=== PATIENT | female | born 1985 | race Two or more races ===

== ENCOUNTER 2023-07-29 11:31 | Emergency (ER) | payer OTHER, SELFPAY ==
--- NOTE | ~2023-07-29 | XR_ITS ---
EXAMINATION: XR CHEST CLINICAL INFORMATION: Shortness of breath COMPARISON: None available. TECHNIQUE: 2 views of the chest were obtained. FINDINGS: Suggestion of hyperinflated lungs. No focal consolidation. No pleural effusion or pneumothorax. Normal heart size and mediastinal contours. XR/XR chest 2V IMPRESSION: No acute cardiopulmonary abnormality.
--- NOTE | 2023-07-29 13:19 | ED_ITS ---
HPI - General Adult General Chief complaint: General Medical Stated complaint: jaw pain/ SOB?? Time Seen by Provider: 07/29/23 14:06 Source: patient and family Mode of arrival: ambulatory Limitations: no limitations History of Present Illness HPI narrative: 37 yo female previously healthy here with multiple complaints of sore throat, difficulty swallowing (carbohydrates, dry foods only), palpitations x 1 week. No fevers, chills, URI symptoms, chest pain, shortness of breath, abdominal pain, vomiting, diarrhea, leg swelling or leg pain. No recent travel or sick contact. No difficulty with swallowing liquids. No weight loss. Related Data Allergies Allergy/AdvReac Type Severity Reaction Status Date / Time No Known Allergies Allergy Verified 07/29/23 13:20 Review of Systems 2 Review of Systems: Yes all other systems are reviewed and are negative Constitutional: Constitutional: Reports no additional constitutional complaints, Denies body ache(s), Denies chills, Denies fever(s), Denies headache(s), Denies weakness and Denies weight loss Eyes: Eyes: Reports no additional eye complaints and Denies change in vision ENT: Reports system reviewed and no additional complaints, except as documented, Reports dysphagia, Denies dizziness, Denies headache(s), Denies nasal congestion, Denies nasal discharge, Denies neck pain and Reports sore throat Cardiovascular: Cardiovascular: Reports no additional cardiovascular complaints, Denies chest pain, Denies leg edema, Reports palpitations and Denies dyspnea Respiratory: Respiratory: Reports no additional respiratory complaints, Denies cough and Denies dyspnea Gastrointestinal: Gastrointestinal: Reports no additional gastrointestinal complaints, Denies abdominal pain, Reports dysphagia, Denies diarrhea, Denies nausea and Denies vomiting Genitourinary: Genitourinary: Reports no additional female genitourinary complaints and Denies urinary incontinence Musculoskeletal: Musculoskeletal: Reports no additional musculoskeletal complaints, Denies back pain, Denies arthralgias, Denies joint swelling, Denies neck pain, Denies numbness and Denies tingling Integumentary/Breasts: Skin/Breast: Reports system reviewed and no additional complaints, except as docu and Denies rash Neurologic: Reports system reviewed and no additional complaints, except as documented, Denies Abnormal speech present, Denies dizziness, Denies headache(s), Denies numbness, Denies tingling and Denies weakness Endocrine: Endocrine: Reports palpitations PMFSH Past Medical History Attestation statement: The following information was validated with the patient. Source: old records reviewed and nursing notes reviewed Onset Date is defined in the Problem List Problems that require an onset date and time if occurred within 24 hrs of arrival to the ED Aortic Dissection and Rupture; Neurologic impairment; Cardiopulmonary Arrest; Endotracheal Intubation; Insertion or Replacement of Mechanical Circulatory Assist Device Social History Social History Advance Directives: No Advance Directives Information Provided: No Physical Exam ED Vital Signs: Vital Signs - 24 hr 07/29/23 13:20 Temperature 98.2 F Pulse Rate 102 H Respiratory Rate 18 Blood Pressure 152/93 H Pulse Oximetry 100 Oxygen Delivery Method Room Air BMI result Body Mass Index 19.2 Const General: cooperative, healthy appearing, comfortable and no acute distress Orientation/consciousness: patient oriented x3 Limitations: no limitations HENMT Head: Yes normal to inspection Ears: hearing grossly normal bilaterally and TM's normal bilaterally General nose exam: Normal external nose present Face and sinus: Yes normal facial exam Mouth: Normal oral and palatal mucosa present Throat: Yes posterior oropharynx normal, Yes tonsils normal and Yes uvula midline Eyes General: appearance normal, both eyes and all related structures Pupils: Equal, round and reactive pupils present Neck Neck: Yes normal visual inspection, Yes full ROM, Yes no lymphadenopathy and Yes no meningeal signs Chest Chest palpation & inspection: normal inspection of the chest Resp Effort & Inspection: normal respiratory effort Auscultation: clear to auscultation bilaterally Cardio Rate: regular rate Rhythm: regular rhythm Peripheral pulses: Peripheral pulses 2+ throughout GI Inspection: Yes normal to inspection Palpation (GI): Soft to palpation and nontender Auscultation: normal bowel sounds Back/Spine/Pelvis Thoracic/Lumbar Spine: thoracic and lumbar spine normal to inspection Skin General skin exam: no rashes or lesions noted Neuro General: patient oriented x3, no meningeal signs, no focal motor deficits and normal sensation to monofilament Cranial nerves: Yes Equal, round and reactive pupils present Cognition (Neuro): normal cognition Speech: No Abnormal speech present Gait exam (Neuro): Normal gait present Motor exam (neuro): 5/5 motor strength present throughout Extrem General: Yes normal to inspection, Yes no pedal edema and Yes no calf tenderness Course Course Course Narrative: This is an RME: Additional HPI, ROS, PE not included below will be deferred to primary provider. This is a [id number]-female, with no known medical problems, presenting to the emergency department with a complaint of SOB, palpitations, and sore throat x 1 week. She is on control, no recent travel, surgeries, hospitalizations, cancer hx or blood clot hx. Plan: Viral swabs, Labs, EKG, CXR Medical Decision Making Medical Decision Making [facility] Narrative: 37 yo female previously healthy here with multiple complaints of sore throat, difficulty swallowing (carbohydrates, dry foods only), palpitations x 1 week. No fevers, chills, URI symptoms, chest pain, shortness of breath, abdominal pain, vomiting, diarrhea, leg swelling or leg pain. No recent travel or sick contact. No difficulty with swallowing liquids. No weight loss. Patient tolerating p.o. secretions, no difficulty breathing or swallowing. LS CTA. VSS. 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 with no difficulty. No red flag symptoms to suggest need for urgent GI consultation and or admission. Lab Data [facility] Lab Attestation statement: I reviewed the patient's lab results. 07/29/23 13:59 07/29/23 13:59 Labs: Lab Results 07/29/23 Range/Units 13:59 WBC 7.1 (4.8-10.8) X10*3/uL RBC 4.38 (4.20-5.50) X10*6/uL Hgb 13.3 (12.0-16.0) g/dl Hct 38.9 (37.0-47.0) % MCV 88.8 (80.0-98.0) fL MCH 30.4 (27.0-33.0) pg MCHC 34.2 (31.0-35.0) g/dl RDW 11.6 (11.0-16.0) % Plt Count 291 (160-400) X10*3/uL MPV 9.2 L (9.4-12.3) fL Immature Gran % (Auto) 0.3 (0.0-0.4) % Neut % (Auto) 62.2 (45-73) % Lymph % (Auto) 27.9 (20-40) % [place] % (Auto) 6.2 (2-11) % Eos % (Auto) 2.8 (0-4) % Baso % (Auto) 0.6 (0-2) % Lymph # (Auto) 2.0 (1.2-4.9) X10*3/uL [place] # (Auto) 0.4 (0.1-1.2) X10*3/uL Eos # (Auto) 0.2 (0.0-0.4) X10*3/uL Baso # (Auto) 0.0 (0.0-0.2) X10*3/uL Abs Immat Gran (auto) 0.02 (0.00-0.03) X10*3/uL Absolute Neuts (auto) 4.4 (2.0-8.3) x10*3/uL Absolute Nucleated RBC 0.000 (0.0-0.012) X10*3/uL Nucleated RBC % (auto) 0.0 (0.0-0.2) /100WBC Sodium 138 (135-145) mmol/L Potassium 3.5 (3.3-5.1) mmol/L Chloride 106 (96-108) mmol/L Carbon Dioxide 24 (22-29) mmol/L Anion Gap 12 (12-20) BUN 11 (9-16) mg/dL Creatinine 0.62 (0.5-1.4) mg/dL Estim Creat Clear Calc 101.5 Estimated GFR > 60 Random Glucose 86 (60-115) mg/dL Calcium 9.4 (8.4-10.2) mg/dL Total Bilirubin 1.3 H (0.0-1.0) mg/dL Direct Bilirubin 0.4 (0.0-0.5) mg/dL AST 12 (5-31) U/L ALT 7 (0-31) U/L Alkaline Phosphatase 54 (39-117) U/L Troponin I High Sens < 2.7 (<3.5-17.0) ng/L Total Protein 7.2 (6.5-8.0) g/dL Albumin 4.1 (3.5-5.0) g/dL TSH 1.33 (0.32-4.0) uIU/mL COVID-19 (MARILEE) Negative (Negative) COVID-19 Clin Com See Note Influenza Type A (DWIGHT) Negative (Negative) Influenza Type B (DWIGHT) Negative (Negative) Influenza A & B Note See Note S. pyogenes GrpA DWIGHT Negative (Negative) Independent Interpretation I performed an independent interpretation of an: EKG and Plain X-Ray Interpretation: I independently reviewed the x-ray and agree with the radiology report I independently reviewed the EKG which shows ST with a rate of 104, normal pr, normal qrs, normal qt Radiology Impression Discussion of test interpretation with radiology: I have reviewed the radiologist's reading. Radiologist Impression: [address] [address] XRay Report Signed Patient: Giorgi Lee MR#: [id number] : 1985 Acct:[id number] Age/Sex: 37 / F ADM Date: 07/29/23 Loc: .ED Attending Dr: Ordering Physician: Susy Vera Date of Service: 07/29/23 Procedure(s): XR chest 2V Accession Number(s): [id number] cc: Susy Vera; Physician,Unknown ~ EXAMINATION: XR CHEST CLINICAL INFORMATION: Shortness of breath COMPARISON: None available. TECHNIQUE: 2 views of the chest were obtained. FINDINGS: Suggestion of hyperinflated lungs. No focal consolidation. No pleural effusion or pneumothorax. Normal heart size and mediastinal contours. XR/XR chest 2V IMPRESSION: No acute cardiopulmonary abnormality. Independent Historian Clinical information obtained from an independent historian. History obtained from or confirmed by: Spouse is interpreting-declined formal label fuser tender usage Discharge Plan Discharge Clinical Impression: Palpitations Patient Disposition: Home, Self-Care Instructions: Heart Palpitations (ED) Additional Instructions: stay well hydrated. Your lab work and EKG are normal. Your testing for strep throat and COVID are negative. Your chest x-ray shows no signs of infection. As far as your difficulty swallowing please eat soft foods, cut your food into small bites and eat slowly. Chews thoroughly. Please establish a primary care doctor as you may need further outpatient testing. Please return for any worsening symptoms. Referrals: Physician,Unknown J [Primary Care Provider] - 1 week
[2023-07-29 13:20] VITALS: BP 152/93; PULSE 102; RESP 18; TEMP 36.8; O2SAT 100; BMI 19.2
--- NOTE | 2023-07-29 13:24 | ECG_ITS ---
Test Reason : PALPITATIONS Blood Pressure : / mmHG Vent. Rate : 104 BPM Atrial Rate : 104 BPM P-R Int : 132 ms QRS Dur : 092 ms QT Int : 342 ms P-R-T Axes : 078 083 046 degrees QTc Int : 449 ms Sinus tachycardia Otherwise normal ECG No previous ECGs available Referred By: Susy Vera Electronically Signed By:GLORIA POMPA MD
[2023-07-29 14:04] LABS: MANUAL DIFF FLAG NO
[2023-07-29 14:05] LABS: Basophils Percent Auto 0.6 % (0-2); Eosinophils Absolute Auto 0.2 X10*3/uL (0.0-0.4); Eosinophils Percent Auto 2.8 % (0-4); Hematocrit 38.9 % (37.0-47.0); Hemoglobin 13.3 g/dl (12.0-16.0); Imm Gran Abs Auto 0.02 X10*3/uL (0.00-0.03); Imm Gran Pct Auto 0.3 % (0.0-0.4); Lymphocytes Percent Auto 27.9 % (20-40); Mean Corpuscular HGB Conc 34.2 g/dl (31.0-35.0); Mean Corpuscular Hemoglobin 30.4 pg (27.0-33.0); Mean Corpuscular Volume 88.8 fL (80.0-98.0); Mean Platelet Volume 9.2 fL (9.4-12.3); Monocytes Absolute Auto 0.4 X10*3/uL (0.1-1.2); Monocytes Percent Auto 6.2 % (2-11); Neutrophils Absolute Auto 4.4 x10*3/uL (2.0-8.3); Neutrophils Percent Auto 62.2 % (45-73); Platelet Count 291 X10*3/uL (160-400); Red Blood Count 4.38 X10*6/uL (4.20-5.50); Red Cell Distribution Width 11.6 % (11.0-16.0); White Blood Count 7.1 X10*3/uL (4.8-10.8)
[2023-07-29 14:21] LABS: COVID-19 Test Negative (Negative); IDNOW Serial# 08D9AD1C; IDNOW Serial# 152EDE1D; Strep A Nucleic Acid Negative (Negative)
[2023-07-29 14:25] LABS: Alanine Aminotransferase 7 U/L (0-31); Albumin Level 4.1 g/dL (3.5-5.0); Alkaline Phosphatase 54 U/L (39-117); Anion Gap 12 (12-20); Aspartate Amino Transferase 12 U/L (5-31); Bilirubin Direct 0.4 mg/dL (0.0-0.5); Bilirubin Total 1.3 mg/dL (0.0-1.0); Blood Urea Nitrogen 11 mg/dL (9-16); Calcium 9.4 mg/dL (8.4-10.2); Carbon Dioxide 24 mmol/L (22-29); Chloride 106 mmol/L (96-108); Creatinine Clr Calc Pharmacy 101.5; Estimated Glomerular Filt Rate > 60; Glucose Random 86 mg/dL (60-115); IDNOW Serial# 9DB6401D; Influenza A Negative (Negative); Influenza B2 Negative (Negative); Potassium 3.5 mmol/L (3.3-5.1); Sodium 138 mmol/L (135-145); Total Protein 7.2 g/dL (6.5-8.0)
[2023-07-29 14:30] LABS: Troponin-I High Sensitivity < 2.7 ng/L (<3.5-17.0)
[2023-07-29 14:39] LABS: TSH reflex Free T4 1.33 uIU/mL (0.32-4.0)
== END 2023-07-29 16:23 | disposition home or self-care (01) ==
PROVIDERS: Physician Assistant Medical; Emergency Provider Emergency Medicine
DX: R00.2 Palpitations (principal); R06.02 Shortness of breath; Z11.52 Encounter for screening for COVID-19; J02.9 Acute pharyngitis, unspecified
CPT/HCPCS: 36415; 71046; 80048; 80076; 84443; 84484; 85025; 87502; 87635; 87651; 93005; 99283

== ENCOUNTER → 2023-07-29 13:24 | Outpatient (BNV) | payer OTHER, SELFPAY | PROVIDERS: Emergency Provider Emergency Medicine; Visit Provider Internal Medicine Cardiovascular Disease | DX: R00.0 Tachycardia, unspecified (principal) | CPT/HCPCS: 93010 ==

== ENCOUNTER 2024-05-20 17:29 | Emergency (ER) | payer OTHER, SELFPAY ==
--- NOTE | ~2024-05-20 | XR_ITS ---
EXAMINATION: XR ABDOMEN KUB CLINICAL INDICATION: Pain. COMPARISON: None available. TECHNIQUE: AP view of the abdomen. FINDINGS: The bowel gas pattern is normal with no evidence of ileus or obstruction. There is retained stool. No unusual soft tissue calcifications are noted. The bones are unremarkable. XR/XR KUB IMPRESSION: Nonspecific bowel gas pattern. Retained stool of uncertain significance. Electronically signed by: Yasir Interiano MD 05/21/2024 12:49 AM OPAL
[2024-05-20 17:55] VITALS: BP 152/79; PULSE 94; RESP 20; TEMP 36.6; O2SAT 100; BMI 24.9
--- NOTE | 2024-05-20 18:00 | ED.GENADULT ---
HPI - General Adult General Chief complaint: Abdominal Pain Stated complaint: Stomach Pain Dizzy Time Seen by Provider: 05/20/24 22:33 Source: patient Limitations: language barrier History of Present Illness ED Provider: Maty Conn PA-C HPI narrative: 38-year-old female with a history of constipation presents with abdominal pain x3 days. Pain over left mid abdomen, nonradiating, unable to describe the nature of her pain. Associated intermittent nausea vomiting. Associated indigestion. Denies abdominal distention, inability to pass flatus. Unclear when patient had a last normal bowel movement, she is passing small amounts of hard stool. Related Data Previous Rx's ?Medication ?Instructions ?Recorded ondansetron 4 mg disintegrating 4 mg PO Q8H PRN nausea and 05/21/24 tablet vomiting #10 tabs sucralfate 1 gram tablet (Carafate) 1 g PO Q6H PRN acid reflux #20 tabs 05/21/24 Allergies Allergy/AdvReac Type Severity Reaction Status Date / Time No Known Allergies Allergy Verified 05/20/24 17:59 Review of Systems Review of Systems: Yes all other systems are reviewed and are negative Constitutional: Constitutional: Denies fatigue and Denies fever(s) Cardiovascular: Cardiovascular: Denies chest pain and Denies dyspnea Respiratory: Respiratory: Denies dyspnea Gastrointestinal: Gastrointestinal: Reports abdominal pain, Reports constipation, Reports dyspepsia, Reports nausea and Reports vomiting Endocrine: Endocrine: Denies fatigue PMFSH Past Medical History Attestation statement: The following information was validated with the patient. Social History Social History Advance Directives: No Advance Directives Information Provided: No Physical Exam ED Vital Signs: Vital Signs - 24 hr 05/20/24 17:55 05/20/24 22:36 05/21/24 01:28 Temperature 97.8 F 98.0 F 97.9 F Pulse Rate 94 91 77 Respiratory Rate 20 18 18 Blood Pressure 152/79 H 140/91 H 126/79 Pulse Oximetry 100 99 100 Oxygen Delivery Method Room Air Room Air Room Air 05/21/24 01:40 Temperature 97.9 F Pulse Rate 77 Respiratory Rate 18 Blood Pressure 126/79 Pulse Oximetry 100 Oxygen Delivery Method Room Air BMI result Body Mass Index 24.9 Const Other: Alert, well-appearing Orientation/consciousness: patient oriented x3 Resp Other: Nonlabored respiration Cardio Other: Normal peripheral perfusion GI Other: Abdomen is soft, nondistended nontender no guarding Skin Other: Warm dry no rash Neuro General: patient oriented x3, no focal motor deficits and CN's II-XI intact bilaterally Psych Other: Calm cooperative Course Course Course Narrative: RME: 38 year female presents to ED for dizziness described as lightheadedness and vomiting with epigastric abdominal pain radiating to left upper abdomen. Patient denies any recent trauma or lower abdominal symptoms. EKG labs ordered Medical Decision Making Medical Decision Making [place] Narrative: 38-year-old female with a history of constipation presents with abdominal pain x3 days. Pain over left mid abdomen, nonradiating, unable to describe the nature of her pain. Associated intermittent nausea vomiting. Associated indigestion. Denies abdominal distention, inability to pass flatus. Unclear when patient had a last normal bowel movement, she is passing small amounts of hard stool. Problem: Constipation History: Per patient I have considered the following differential diagnoses: Bowel obstruction, constipation, fecal impaction, obstipation Plan: Screening labs obtained, I am adding a KUB. This is likely the patient's constipation, she has had symptoms for 3 days, her labs are completely normal, her exam was unremarkable. Thought about bowel obstruction, however she does not have obstructive symptoms. Labs: No leukocytosis, not anemic, urine not infected, not , viral panel neg KUB: Significant stool burden Lab Data 05/20/24 18:39 05/20/24 18:39 Labs: Lab Results 05/20/24 Range/Units 18:39 WBC 7.6 (4.8-10.8) X10*3/uL RBC 4.48 (4.20-5.50) X10*6/uL Hgb 14.0 (12.0-16.0) g/dl Hct 39.5 (37.0-47.0) % MCV 88.2 (80.0-98.0) fL MCH 31.3 (27.0-33.0) pg MCHC 35.4 H (31.0-35.0) g/dl RDW 11.4 (11.0-16.0) % Plt Count 289 (160-400) X10*3/uL MPV 9.6 (9.4-12.3) fL Immature Gran % (Auto) 0.3 (0.0-0.4) % Neut % (Auto) 51.0 (45-73) % Lymph % (Auto) 35.7 (20-40) % [place] % (Auto) 7.9 (2-11) % Eos % (Auto) 4.6 H (0-4) % Baso % (Auto) 0.5 (0-2) % Lymph # (Auto) 2.7 (1.2-4.9) X10*3/uL [place] # (Auto) 0.6 (0.1-1.2) X10*3/uL Eos # (Auto) 0.4 (0.0-0.4) X10*3/uL Baso # (Auto) 0.0 (0.0-0.2) X10*3/uL Abs Immat Gran (auto) 0.02 (0.00-0.03) X10*3/uL Absolute Neuts (auto) 3.9 (2.0-8.3) x10*3/uL Absolute Nucleated RBC 0.000 (0.0-0.012) X10*3/uL Nucleated RBC % (auto) 0.0 (0.0-0.2) /100WBC Sodium 141 (135-145) mmol/L Potassium 3.6 (3.3-5.1) mmol/L Chloride 107 (96-108) mmol/L Carbon Dioxide 25 (22-29) mmol/L Anion Gap 13 (12-20) BUN 14 (9-16) mg/dL Creatinine 0.74 (0.5-1.4) mg/dL Estim Creat Clear Calc 98.1 Estimated GFR > 60 Random Glucose 91 (60-115) mg/dL Calcium 9.5 (8.4-10.2) mg/dL Total Bilirubin 1.1 H (0.0-1.0) mg/dL AST 18 (5-31) U/L ALT 12 (0-31) U/L Alkaline Phosphatase 60 (39-117) U/L Troponin I High Sens < 2.7 (<3.5-17.0) ng/L Total Protein 7.5 (6.5-8.0) g/dL Albumin 4.6 (3.5-5.0) g/dL Lipase 25 (8-78) U/L Beta HCG, Quant < 2 mIU/mL Influenza Type A (PCR) NEGATIVE (Negative) Influenza Type B (PCR) NEGATIVE (Negative) RSV RNA Qual (PCR) NEGATIVE (Negative) SARS-CoV-2 RNA (RT-PCR) NEGATIVE (Negative) Discharge Plan Discharge Clinical Impression: Constipation, GERD (gastroesophageal reflux disease) Patient Disposition: Home, Self-Care Instructions: Constipation (ED), Gastroesophageal Reflux Disease (ED) Additional Instructions: All of your labs were completely normal. The x-ray revealed a your significantly constipated. See home care instructions. To note, significant constipation can cause acid reflux symptoms and nausea. In order to alleviate your significant stool burden, you need to use [id number] Colace, this is a stool softener, 1 to 2 times a day. In addition, you need to purchase [id number] MiraLax, mix the powder per package instructions, consume the liquid 2 to 4 times a day, until you begin having multiple large volume bowel movements. Once you alleviate your current stool burden, stay on the stool softener daily, you may require the MiraLax daily or a few times a week. You will have to determine what works for you. In the meantime, use the Carafate for your burning sensation in your stomach. Uses Zofran as needed for nausea. You really need a primary care provider, I would call your insurance company for guidance on this matter. Prescriptions: New ondansetron 4 mg tablet,disintegrating 4 mg PO Q8H PRN (Reason: nausea and vomiting) Qty: 10 0RF sucralfate [Carafate] 1 gram tablet 1 g PO Q6H PRN (Reason: acid reflux) Qty: 20 0RF Stand Alone Forms: Work/School Release Interventions: ED Discharge Assessment Last Done: 05/21/24 01:40 Discharge Date/Time: 05/21/24 01:40 Print Language: Syriac
[2024-05-20 18:44] LABS: MANUAL DIFF FLAG NO
[2024-05-20 18:51] LABS: Basophils Percent Auto 0.5 % (0-2); Eosinophils Absolute Auto 0.4 X10*3/uL (0.0-0.4); Eosinophils Percent Auto 4.6 % (0-4); Hematocrit 39.5 % (37.0-47.0); Imm Gran Abs Auto 0.02 X10*3/uL (0.00-0.03); Imm Gran Pct Auto 0.3 % (0.0-0.4); Lymphocytes Absolute Auto 2.7 X10*3/uL (1.2-4.9); Lymphocytes Percent Auto 35.7 % (20-40); Mean Corpuscular HGB Conc 35.4 g/dl (31.0-35.0); Mean Corpuscular Hemoglobin 31.3 pg (27.0-33.0); Mean Corpuscular Volume 88.2 fL (80.0-98.0); Mean Platelet Volume 9.6 fL (9.4-12.3); Monocytes Absolute Auto 0.6 X10*3/uL (0.1-1.2); Monocytes Percent Auto 7.9 % (2-11); Neutrophils Absolute Auto 3.9 x10*3/uL (2.0-8.3); Platelet Count 289 X10*3/uL (160-400); Red Blood Count 4.48 X10*6/uL (4.20-5.50); Red Cell Distribution Width 11.4 % (11.0-16.0); White Blood Count 7.6 X10*3/uL (4.8-10.8)
[2024-05-20 19:13] LABS: Alanine Aminotransferase 12 U/L (0-31); Albumin Level 4.6 g/dL (3.5-5.0); Alkaline Phosphatase 60 U/L (39-117); Anion Gap 13 (12-20); Aspartate Amino Transferase 18 U/L (5-31); Bilirubin Total 1.1 mg/dL (0.0-1.0); Blood Urea Nitrogen 14 mg/dL (9-16); Calcium 9.5 mg/dL (8.4-10.2); Carbon Dioxide 25 mmol/L (22-29); Chloride 107 mmol/L (96-108); Creatinine Clr Calc Pharmacy 98.1; Estimated Glomerular Filt Rate > 60; Glucose Random 91 mg/dL (60-115); HCG Quantitative < 2 mIU/mL; Lipase 25 U/L (8-78); Potassium 3.6 mmol/L (3.3-5.1); Sodium 141 mmol/L (135-145); Total Protein 7.5 g/dL (6.5-8.0)
[2024-05-20 19:14] LABS: Troponin-I High Sensitivity < 2.7 ng/L (<3.5-17.0)
[2024-05-20 19:26] LABS: Influenza A PCR NEGATIVE (Negative); Influenza B PCR NEGATIVE (Negative); Resp Syncy Virus RNA Qual PCR NEGATIVE (Negative); SARS COV2 PCR INHOUSE NEGATIVE (Negative)
[2024-05-20 22:36] VITALS: BP 140/91; PULSE 91; RESP 18; TEMP 36.7; O2SAT 99
[2024-05-21 01:28] VITALS: BP 126/79; PULSE 77; RESP 18; TEMP 36.6; O2SAT 100
[2024-05-21 01:40] VITALS: BP 126/79; PULSE 77; RESP 18; TEMP 36.6; O2SAT 100
== END 2024-05-21 01:40 | disposition home or self-care (01) ==
PROVIDERS: Physician Assistant; Emergency Provider Emergency Medicine
DX: K59.00 Constipation, unspecified (principal); R42 Dizziness and giddiness; R10.9 Unspecified abdominal pain; R11.2 Nausea with vomiting, unspecified
CPT/HCPCS: 0241U; 36415; 74018; 80053; 83690; 84484; 84702; 85025; 99283; 99284

== ENCOUNTER 2024-07-05 17:25 | Emergency (ER) | payer OTHER, SELFPAY ==
[2024-07-05 17:29] VITALS: BP 160/93; PULSE 107; RESP 20; TEMP 36.6; O2SAT 99; BMI 22.5
--- NOTE | 2024-07-05 17:40 | ED_ITS ---
HPI - Ear Problem General Chief complaint: Ear Problems Stated complaint: lump on air Time Seen by Provider: 07/05/24 17:39 Source: patient and family Mode of arrival: ambulatory Limitations: language barrier History of Present Illness ED Provider: Светлана LISA Narrative: Patient is a 38-year-old [place]ian speaking female requesting that interpret presenting to the ED with complaint of right ear pain as well as a bump to auricle which patient noticed around 2 months ago. Denies any discharge or drainage from ear or bump. Denies fevers. Denies other URI symptoms. MD Complaint: ear pain Location: right ear Discharge from ear: no Related Data Previous Rx's ?Medication ?Instructions ?Recorded ondansetron 4 mg disintegrating 4 mg PO Q8H PRN nausea and 05/21/24 tablet vomiting #10 tabs sucralfate 1 gram tablet (Carafate) 1 g PO Q6H PRN acid reflux #20 tabs 05/21/24 amoxicillin 875 mg tablet 875 mg PO BID #14 tabs 07/05/24 Allergies Allergy/AdvReac Type Severity Reaction Status Date / Time No Known Allergies Allergy Verified 07/05/24 17:30 Review of Systems 2 Review of Systems: As per HPI Yes all other systems are reviewed and are negative Constitutional: Constitutional: Reports as per HPI Physical Exam 2 Vital Signs: Vital Signs: Last Vital Signs Temp 98 F 07/05/24 17:29 Pulse 107 H 07/05/24 17:29 Resp 20 07/05/24 17:29 BP 160/93 H 07/05/24 17:29 Pulse Ox 99 07/05/24 17:29 O2 Del Method Room Air 07/05/24 17:29 BMI result Body Mass Index 22.5 Vital signs have been reviewed and appear to be correct. Blood pressure elevated. Heart rate slightly tachycardic. Respiratory rate normal. Temperature normal. Oxygen saturation normal. Const: General: cooperative, healthy appearing and no acute distress O rientation/consciousness: oriented to person, oriented to place, oriented to time and patient oriented x3 Limitations: no limitations HEENT: Head: Yes normocephalic and Yes atraumatic Ears: external ears normal, TM normal on the left, mastoids normal bilaterally, Abnormal EAC present cerumen impaction on the right and no periauricular adenopathy Outer ear/TM images: 1. 2mm flesh colored firm mass with hyperpigmentation on surface General nose exam: Normal external nose present and Normal nasal mucous membranes and turbinates present Face and sinus: Yes face symmetric Mouth: oropharynx normal and moist mucous membranes Throat: Yes uvula midline Eyes: Pupils: Equal, round and reactive pupils present Neck: Neck: Yes normal visual inspection and Yes supple Resp: Effort & Inspection: normal respiratory effort and able to speak in complete sentences Auscultation: clear to auscultation bilaterally Cardio: Rate: regular rate Rhythm: regular rhythm Heart sounds: S1 normal heart sound present and S2 normal heart sound present GI: Palpation (GI): Soft to palpation and nontender Auscultation: n ormoactive bowel sounds : General: Yes no CVA tenderness Back/Spine/Pelvis: Back: no CVA tenderness Skin: General skin exam: elasticity normal and turgor normal Neuro: General: oriented to person, oriented to place, oriented to time, patient oriented x3, moves all extremities, no focal motor deficits and CN's II- XI intact bilaterally Cranial nerves: Yes Equal, round and reactive pupils present Cognition (Neuro): normal cognition Extrem: General: Yes full ROM, Yes no pedal edema and Yes no calf tenderness Psych: Mental Status: mental status grossly normal Affect: normal affect Thought process: Normal thought process present Medical Decision Making Medical Decision Making [facility] Narrative: Patient is a 38-year-old Bulgarian speaking female requesting that interpret presenting to the ED with complaint of right ear pain as well as a bump to auricle which patient noticed around 2 months ago. On exam patient is awake, A+Ox3, VS WNL, afebrile, normal neurological exam without focal deficits, physical exam findings as above. Given reported symptoms and physical exam findings, initial differential includes otitis media, otitis externa, cerumen impaction, nevi. Cerumen impaction to right EAC on exam. Ear irrigated with warm water and re-evaluated. TM erythematous and bulging. Will treat for AOM with amoxicillin. Will refer to dermatology for evaluation of growth to auricle. Return precautions discussed. Patient and verbalized understanding of and agreement with plan. Differential Diagnosis Differential Diagnoses: The differential diagnosis associated with the presentation includes As per [facility] Independent Historian Clinical information obtained from an independent historian. History obtained from or confirmed by: Spouse External Record Review External record reviewed: Inpatient record, Office record and Outpatient record Prescription Management I considered prescription management with: Antibiotic Discharge Plan Discharge Clinical Impression: Otitis media Patient Disposition: Home, Self-Care Instructions: Ear Infection (ED) Additional Instructions: You were evaluated in the emergency department today for ear pain. Your evaluation suggests that your pain is due to an ear infection. Please take your prescribed antibiotics as directed for the full course of the medication. Please follow up with your primary care provider within two days. Return to the emergency department if you experience hearing loss, discharge from your ear, headaches, fevers, recurrent vomiting, or any other concerning symptoms. Call the dermatology office to schedule an appointment for evaluation of the bump on your ear. Prescriptions: New amoxicillin 875 mg tablet 875 mg PO BID Qty: 14 0RF No Action ondansetron 4 mg tablet,disintegrating 4 mg PO Q8H PRN (Reason: nausea and vomiting) Qty: 10 0RF sucralfate [Carafate] 1 gram tablet 1 g PO Q6H PRN (Reason: acid reflux) Qty: 20 0RF Referrals: [facility] [Provider Group] [facility] [Provider Group] [facility] [Provider Group] [facility] [Provider Group] Print Language: Bulgarian
[2024-07-05 17:50] VITALS: BP 160/93; PULSE 107; RESP 20; TEMP 36.6; O2SAT 99
== END 2024-07-05 17:51 | disposition home or self-care (01) ==
PROVIDERS: Emergency Provider Emergency Medicine
DX: H66.91 Otitis media, unspecified, right ear (principal); H92.01 Otalgia, right ear
CPT/HCPCS: 99282; 99283

== ENCOUNTER 2025-01-31 17:31 | Emergency (ER) | payer OTHER, SELFPAY ==
[2025-01-31 17:56] VITALS: BP 127/86; PULSE 100; RESP 18; TEMP 36.4; O2SAT 98; BMI 20.3
--- NOTE | 2025-01-31 18:01 | ECG_ITS ---
Test Reason : arm pain Blood Pressure : */* mmHG Vent. Rate : 98 BPM Atrial Rate : 98 BPM P-R Int : 136 ms QRS Dur : 94 ms QT Int : 342 ms P-R-T Axes : 77 76 50 degrees QTcB Int : 436 ms Normal sinus rhythm Incomplete right bundle branch block Borderline ECG When compared with ECG of 29-Jul-2023 13:50, No significant change was found Referred By: Oracio Barajas Electronically Signed By: SUKUMAR MAYNARD
--- NOTE | 2025-01-31 18:07 | ED_ITS ---
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 eGorgi Grant HPI narrative: 39-year-old female with a history of constipation, miscarriage 3 months prior who presents emergency department for evaluation of left lower back pain with pain radiating down her left leg to her foot and left arm pain. Patient states she has had lower back pain with pain radiating down her leg for years. She states it is over the last week the pain in her lower back has become more severe and the pain in her left the his severe especially at night when she is trying to sleep. She states that the pain is a pressure-like pain which is constant. She denies any numbness or weakness of her lower extremities. She denied loss of bowel or bladder control. Patient has been taking ibuprofen with only minimal relief for the pain with no relief in her nighttime pain. Patient states that over the last week she has developed intermittent pain in her left arm with no numbness or weakness. She denied fever, chills, chest pain, shortness of breath, dyspnea on exertion. She has had no dysuria but has noted urinary frequency. Related Data Previous Rx's ?Medication ?Instructions ?Recorded ondansetron 4 mg disintegrating 4 mg PO Q8H PRN nausea and 05/21/24 tablet vomiting #10 tabs sucralfate 1 gram tablet (Carafate) 1 g PO Q6H PRN aci d reflux #20 tabs 05/21/24 amoxicillin 875 mg tablet 875 mg PO BID #14 tabs 07/05 cyclobenzaprine 10 mg tablet 10 mg PO TID PRN muscle s pasm, leg 01/31/25 pain #20 tabs prednisone 20 mg tablet 60 mg (3 x 20 mg) PO DAILY 5 days 01/31/25 #15 tabs Allergies Allergy/AdvReac Type Severity Reaction Status Date / Time No Known Allergies Allergy Verified 01/31/25 18:01 Review of Systems 2 Review of Systems: Yes all other systems are reviewed and are negative PMFSH Past Medical History [facility] Narrative: Social history: She is . She is here with her . She denies tobacco, alcohol and drug use. Social History Social History Advance Directives: No Advance Directives Information Provided: No Do you have a plan to hurt others: No Plan Physical Exam ED Vital Signs: Vital Signs - 24 hr 01/31/25 17:56 01/31/25 19:19 01/31/25 21:00 Temperature 97.5 F 98.3 F 98.3 F Pulse Rate 100 97 97 Respiratory Rate 18 18 18 Blood Pressure 127/86 122/87 122/87 Pulse Oximetry 98 99 99 Oxygen Delivery Method Room Air Room Air Room Air BMI result Body Mass Index 20.3 Vital signs revealed an elevated heart rate of 100 otherwise unremarkable. Exam: General: Awake, alert in no distress Head: Normocephalic, atraumatic EENT: PERRL, Lids normal, sclera normal, conjunctiva normal, nose normal , ears normal, throat without erythema or exudates Neck: Supple, no adenopathy Lung: breath sounds symmetric, no wheezing, rales or rhonchi Chest: symmetric movement, nontender Heart: regular rate and rhythm, normal S1, S2 no murmurs or rubs Abdomen: soft, non-tender, nondistended, normal bowel sounds Back: no vertebral tenderness, no CVAT tenderness and spasm of her paraspinal muscles in the left lumbar sacral area, she has a negative straight leg raise on the right but a positive straight leg raise on the left Extremities: no deformities, moves all extremities symmetrically Neuro: Awake, alert, oriented, normal speech, cranial nerves intact, moves all extremities symmetrically Psych: Pleasant, cooperative Course Course Course Narrative: RME: 39 year female presents to the ED for left-sided back pain radiating down left leg and also left arm pain without any nausea vomiting dysuria hematuria or any trauma. Physical exam is benign. Labs UA ordered Medications Administered Discontinued Medications Generic Name Dose Route Start Last Admin Trade Name Freq PRN Reason Stop Dose Admin Cyclobenzaprine HCl 10 mg 01/31/25 20:31 01/31/25 20:57 Cyclobenzaprine Hcl 10 Mg Tablet PO 01/31/25 20:32 10 mg ONCE ONE Administration Prednisone 60 mg 01/31/25 20:31 01/31/25 20:57 Prednisone 20 Mg Tablet PO 01/31/25 20:32 60 mg ONCE ONE Administration Medical Decision Making Medical Decision Making MDM Narrative: 39-year-old female with a history of constipation, miscarriage 3 months prior who presents emergency department for evaluation of left lower back pain with pain radiating down her left leg to her foot and left arm pain. Patient states she has had lower back pain with pain radiating down her leg for years. She states it is over the last week the pain in her lower back has become more severe and the pain in her left the his severe especially at night when she is trying to sleep. She states that the pain is a pressure-like pain which is constant. She denies any numbness or weakness of her lower extremities. She denied loss of bowel or bladder control. Patient has been taking ibuprofen with only minimal relief for the pain with no relief in her nighttime pain. Patient states that over the last week she has developed intermittent pain in her left arm with no numbness or weakness.She denied fever, chills, chest pain, shortness of breath, dyspnea on exertion. She has had no dysuria but has noted urinary frequency. Vital signs revealed an elevated heart rate of 100 otherwise unremarkable. Patient does have tenderness and spasm of her left paraspinal muscles in the lumbar sacral area. She also has a positive straight leg raise on the left but negative straight leg raise on the right. Upper extremities were normal. Differential diagnosis: ?Includes but is not limited to myocardial infarction, myocardial ischemia, musculoskeletal pain, lumbar the pain with sciatica, urinary tract infection, anemia, electrolyte abnormalities Course: 20:48 My independent interpretation patient's laboratory evaluation as follows: CBC was normal. CMP was normal. Troponin was below detectable limits. Urinalysis is pending. Quantitative test was below detectable limits Patient's 12 EKG was unremarkable. Patient's presentation examination is consistent with lumbar back pain with left lower extremity sciatica. Patient was given prednisone 60 mg and Flexeril 10 mg orally here in the emergency department. She was given a prescription for prednisone 60 mg once a day for 5 days and Flexeril 10 mg 3 times a day as needed for pain and spasm. She was advised to take Tylenol 1000 mg 3 times a day and to avoid NSAIDs while she is taking prednisone. She was given printed and verbal instructions and discharged home. 21:44 Patient's urinalysis was positive for blood and trace leukocyte esterase. Microscopic revealed 0-2 RBCs, 0-5 WBCs, 0 2 squamous cells, no bacteria. I did discuss this over the phone with the patient's , I do not think that the patient has a urinary tract infection as the cause of her back pain. Admission/Observation Consideration of admission/observation: Escalation of care including admission/observation considered (Yes) Lab Data MDM Lab Attestation statement: I reviewed the patient's lab results. 01/31/25 18:21 01/31/25 18:21 Labs: Lab Results 01/31/25 01/31/25 Range/Units 18:21 20:48 WBC 7.2 (4.8-10.8) X10*3/uL RBC 4.50 (4.20-5.50) X10*6/uL Hgb 13.9 (12.0-16.0) g/dl Hct 39.5 (37.0-47.0) % MCV 87.8 (80.0-98.0) fL MCH 30.9 (27.0-33.0) pg MCHC 35.2 H (31.0-35.0) g/dl RDW 11.7 (11.0-16.0) % Plt Count 285 (160-400) X10*3/uL MPV 9.2 L (9.4-12.3) fL Immature Gran % (Auto) 0.1 (0.0-0.4) % Neut % (Auto) 60.8 (45-73) % Lymph % (Auto) 28.3 (20-40) % [place] % (Auto) 6.0 (2-11) % Eos % (Auto) 4.2 H (0-4) % Baso % (Auto) 0.6 (0-2) % Lymph # (Auto) 2.0 (1.2-4.9) X10*3/uL [place] # (Auto) 0.4 (0.1-1.2) X10*3/uL Eos # (Auto) 0.3 (0.0-0.4) X10*3/uL Baso # (Auto) 0.0 (0.0-0.2) X10*3/uL Abs Immat Gran (auto) 0.01 (0.00-0.03) X10*3/uL Absolute Neuts (auto) 4.4 (2.0-8.3) x10*3/uL Absolute Nucleated RBC 0.000 (0.0-0.012) X10*3/uL Nucleated RBC % (auto) 0.0 (0.0-0.2) /100WBC Sodium 138 (135-145) mmol/L Potassium 3.7 (3.3-5.1) mmol/L Chloride 108 (96-108) mmol/L Carbon Dioxide 23 (22-29) mmol/L Anion Gap 11 L (12-20) BUN 11 (9-16) mg/dL Creatinine 0.57 (0.5-1.4) mg/dL Estim Creat Clear Calc 117.9 Estimated GFR > 60 Random Glucose 98 (60-115) mg/dL Calcium 8.9 D (8.4-10.2) mg/dL Total Bilirubin 0.8 (0.0-1.0) mg/dL AST 24 (5-31) U/L ALT 15 (0-31) U/L Alkaline Phosphatase 53 (39-117) U/L Troponin I High Sens < 2.7 (<3.5-17.0) ng/L Total Protein 7.2 (6.5-8.0) g/dL Albumin 4.6 (3.5-5.0) g/dL Beta HCG, Quant < 2 mIU/mL Urine Color Yellow Urine Appearance Clear Urine pH 6.0 (5.0-9.0) Ur Specific [place] <= 1.005 (1.005-1.025) Urine Protein Negative (Neg-Trace) mg/dL Urine Glucose (UA) Negative (Negative) mg/dL Urine Ketones Negative (Negative) mg/dL Urine Blood Moderate (2+) H (Negative) Urine Nitrite Negative (Negative) Ur Leukocyte Esterase Trace H (Negative) Urine RBC 0-2 (0-2) /HPF Urine WBC 0-5 (0-5) /HPF Ur Squamous Epith Cells 0-2 (0-2) /HPF Urine Bacteria None Seen (None Seen) Hyaline Casts 0-2 (0-2) /LPF Independent Interpretation I performed an independent interpretation of an: EKG Interpretation: My independent interpretation patient's 12 EKG done on 01/31/2025 at 18:09 hours is as follows: Normal sinus rhythm rate of 98, normal LA interval, QRS duration QTC interval, no ST segment elevation, no ST segment depression, no significant T-wave abnormalities, no PACs, no PVCs. Compared to an EKG dated 07/29/2023 at 13:50 hours there is no significant change. Independent Historian Clinical information obtained from an independent historian. History obtained from or confirmed by: Spouse Prescription Management I considered prescription management with: Other Anti-inflammatory steroids: Prednisone, anti muscle spasm medication, Flexeril Discharge Plan Discharge Clinical Impression: Sciatica of left side, Left arm pain Patient Disposition: Home, Self-Care Instructions: Sciatica (ED) Additional Instructions: Your blood work was unremarkable Your EKG was unremarkable. Your symptoms and your exam are consistent with inflammation of the nerves come out of your back and go down the back of your leg. This nerve is called the sciatic nerve and this inflammation in his called sciatica. Take prednisone 20 mg pills, 3 pills once a day for 5 days. While you ?are taking prednisone, do not take any NSAIDs (Motrin, Advil, ibuprofen, Aleve, naproxen). Take Flexeril (cyclobenzaprine) 10 mg pills, 1 pill every 6-8 hours as needed for pain or spasm. ?This medication will make you sleepy. ?Do not drive or work while taking this medication. Take Tylenol (acetaminophen) 500 mg pills, 2 pills every 6 hours as needed for pain or fever. Follow-up with your doctor in 2 days. Please return to the emergency department if your symptoms get worse or if you develop any symptoms that are concerning to you. I will call or text you with the results of your urine test. If you have a urine infection I will send an antibiotic to your pharmacy. Prescriptions: New cyclobenzaprine 10 mg tablet 10 mg PO TID PRN (Reason: muscle spasm, leg pain) Qty: 20 0RF prednisone 20 mg tablet 60 mg PO DAILY 5 Days Qty: 15 0RF No Action ondansetron 4 mg tablet,disintegrating 4 mg PO Q8H PRN (Reason: nausea and vomiting) Qty: 10 0RF sucralfate [Carafate] 1 gram tablet 1 g PO Q6H PRN (Reason: acid reflux) Qty: 20 0RF amoxicillin 875 mg tablet 875 mg PO BID Qty: 14 0RF Interventions: ED Discharge Assessment Last Done: 01/31/25 21:00 Discharge Date/Time: 01/31/25 21:00 Print Language: Telugu
[2025-01-31 18:26] LABS: MANUAL DIFF FLAG NO
[2025-01-31 18:27] LABS: Hematocrit 39.5 % (37.0-47.0); Hemoglobin 13.9 g/dl (12.0-16.0); Imm Gran Abs Auto 0.01 X10*3/uL (0.00-0.03); Imm Gran Pct Auto 0.1 % (0.0-0.4); Lymphocytes Absolute Auto 2.0 X10*3/uL (1.2-4.9); Mean Corpuscular HGB Conc 35.2 g/dl (31.0-35.0); Mean Corpuscular Hemoglobin 30.9 pg (27.0-33.0); Mean Corpuscular Volume 87.8 fL (80.0-98.0); NRBC Abs Auto 0.000 X10*3/uL (0.0-0.012); NRBC Pct Auto 0.0 /100WBC (0.0-0.2); Platelet Count 285 X10*3/uL (160-400); Red Blood Count 4.50 X10*6/uL (4.20-5.50); White Blood Count 7.2 X10*3/uL (4.8-10.8)
[2025-01-31 18:46] LABS: Alanine Aminotransferase 15 U/L (0-31); Albumin Level 4.6 g/dL (3.5-5.0); Alkaline Phosphatase 53 U/L (39-117); Anion Gap 11 (12-20); Aspartate Amino Transferase 24 U/L (5-31); Blood Urea Nitrogen 11 mg/dL (9-16); Calcium 8.9 mg/dL (8.4-10.2); Carbon Dioxide 23 mmol/L (22-29); Chloride 108 mmol/L (96-108); Creatinine Clr Calc Pharmacy 117.9; Estimated Glomerular Filt Rate > 60; Potassium 3.7 mmol/L (3.3-5.1); Sodium 138 mmol/L (135-145); Total Protein 7.2 g/dL (6.5-8.0)
[2025-01-31 18:49] LABS: Troponin-I High Sensitivity < 2.7 ng/L (<3.5-17.0)
[2025-01-31 19:19] VITALS: BP 122/87; PULSE 97; RESP 18; TEMP 36.8; O2SAT 99
[2025-01-31 20:55] LABS: Appearance Urine Clear; Glucose Urine UA Negative (Negative); PH 6.0 (5.0-9.0); Specific Gravity - Urine <= 1.005 (1.005-1.025); UMIC TRIGGER UACC YES
[2025-01-31 21:00] VITALS: BP 122/87; PULSE 97; RESP 18; TEMP 36.8; O2SAT 99
== END 2025-01-31 21:00 | disposition home or self-care (01) ==
PROVIDERS: Physician Assistant; Emergency Provider Emergency Medicine Emergency Medical Services
DX: M54.42 Lumbago with sciatica, left side (principal); M79.605 Pain in left leg; M79.602 Pain in left arm; R35.0 Frequency of micturition; Z79.899 Other long term (current) drug therapy
CPT/HCPCS: 36415; 80053; 81001; 84484; 84702; 85025; 93005; 99283; 99284

== ENCOUNTER → 2025-01-31 18:01 | Outpatient (BNV) | payer OTHER, SELFPAY | PROVIDERS: Emergency Provider Emergency Medicine Emergency Medical Services; Visit Provider Internal Medicine | DX: I45.10 Unspecified right bundle-branch block (principal) | CPT/HCPCS: 93010 ==